=== PATIENT | male | born 1950 | race American Indian/Alaskan Native ===

== ENCOUNTER → 2022-02-13 | Outpatient (CLI) | payer MEDICARE ==
[~2022-02-13] MED LIST: ASCO500 PO; CARB100 PO; CHOL10002 PO; LEVCAR10 PO; MEDICAL MARIJUANA; MULVITMIND PO; VITAMIN B COMPLEX PO
== END | disposition home or self-care (01) ==
LOC: LAB SHORT 07:46 → PLD 07:46
DX: Z01.818 Encounter for other preprocedural examination (principal); C32.1 Malignant neoplasm of supraglottis; R93.89 Abnormal findings on diagnostic imaging of other specified body structures; R59.0 Localized enlarged lymph nodes
CPT/HCPCS: 88173

== ENCOUNTER 2022-04-23 09:11 | Day surgery (SDC) | payer MEDICARE, OTHER ==
[~2022-04-23] VITALS: Ht 185.4 cm; Wt 71.7 kg
[~2022-04-23 09:11] MED LIST changes: -CHOL10002 PO; +CIDAFLEX TABLE1 EAC1 PO; -LEVCAR10 PO; +MULVITA PO; +MUPIROCIN1 G1 TOP; +OMEGA-3 + VITA1 EAC2 PO; +SINEMET 25-1001 EAC1 PO; +VITAMIN D310 MC4 PO
[2022-04-23] MEDS ORDERED: Norco 5-325 Ta1 EACH PO (10:59)
--- NOTE | 2022-04-23 11:52 | NUR ---
PT RESTING COMFORTABLY IN BED, SPOUSE AT BEDSIDE. LIGHTS DIMMED, BED RECLINED, EXTRA BLANKET PROVIDED FOR PATIENT COMFORT; CALL LIGHT WITHIN REACH. PT & SPOUSE UPDATED ON PROCEDURE TIME, BOTH VERBALLY UNDERSTANDING, CALM & DENY FURTHER NEEDS.
--- NOTE | 2022-04-23 16:24 | NUR ---
04/23/22 [address] OLIVARES; SEE ANESTHESIA RECORDS.
--- NOTE | 2022-04-23 18:12 | NUR ---
Patient up to Ambulate independently. Gait steady. Dressing to procedure site clean, dry, intact with no visible drainage, swelling, erythema or bruising noted. Discharge instructions reviewed with patient. Patient verbalizes understanding. Copy given to patient to take home. Patient States Post-Procedure ride home has been arranged with . Discharged via wheelchair to private car for ride home.
== END 2022-04-23 18:07 | disposition home or self-care (01) ==
LOC: ORSCMMR 09:11 → ORD 10:45 → ORSCMMR 10:45
PROVIDERS: Surgery
PROC: 0DH68UZ Insertion of Feeding Device into Stomach, Via Natural or Artificial Opening Endoscopic (ICD-10-PCS; principal; 2022-04-23 16:00)
DX: C10.9 Malignant neoplasm of oropharynx, unspecified (principal); K20.80 Other esophagitis without bleeding; G20 Parkinson's disease; I10 Essential (primary) hypertension; Z85.46 Personal history of malignant neoplasm of prostate; G25.81 Restless legs syndrome; Z79.899 Other long term (current) drug therapy
CPT/HCPCS: J0690; J2001; J2704; J7120

== ENCOUNTER 2023-11-12 06:46 | Day surgery (SDC) | payer MEDICARE, OTHER ==
[~2023-11-12] VITALS: Ht 185.4 cm; Wt 75.9 kg
[2023-11-12 09:17] VITALS: BP 139/82
== END 2023-11-12 08:56 | disposition home or self-care (01) ==
LOC: ORSCSDS 06:46
PROC: 0DB48ZX Excision of Esophagogastric Junction, Via Natural or Artificial Opening Endoscopic, Diagnostic (ICD-10-PCS; principal; 2023-11-12)
PROC: 0DB58ZX Excision of Esophagus, Via Natural or Artificial Opening Endoscopic, Diagnostic (ICD-10-PCS; principal; 2023-11-12)
PROC: 0DB68ZX Excision of Stomach, Via Natural or Artificial Opening Endoscopic, Diagnostic (ICD-10-PCS; principal; 2023-11-12)
DX: C15.9 Malignant neoplasm of esophagus, unspecified (principal); R93.3 Abnormal findings on diagnostic imaging of other parts of digestive tract; K29.70 Gastritis, unspecified, without bleeding; Z79.899 Other long term (current) drug therapy

== ENCOUNTER → 2024-01-05 | Outpatient (CLI) | payer MEDICARE, OTHER ==
[~2024-01-05] MED LIST changes: +Norco 5-325 Ta1 EACH PO
== END ==
LOC: LAB 07:52 → LAB SHORT 07:52
DX: C15.9 Malignant neoplasm of esophagus, unspecified (principal)
CPT/HCPCS: 88342